=== PATIENT | female | born 1960 | race Caucasian/White ===

== ENCOUNTER 2016-10-14 18:25 | Emergency (ER) | payer OTHER ==
[~2016-10-14] VITALS: Ht 158.1 cm; Wt 93.0 kg
[2016-10-14 18:39] VITALS: BP 109/76
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
[2016-10-14] MEDS ORDERED: BUPROPION XL300 M1 PO (19:38)
[2016-10-14] MEDS ORDERED: ADVAIR 500-501 EACH INH (19:38)
[2016-10-14] MEDS ORDERED: MOBIC15 M1 PO (19:38)
[2016-10-14] MEDS ORDERED: VENTOLIN HFA18 GM INH (19:38)
[2016-10-14] MEDS ORDERED: OXYBUTYNIN CHLOR5 M3 PO (19:38)
[2016-10-14] MEDS ORDERED: METOPROLOL TART75 MG PO (19:38)
[2016-10-14] MEDS ORDERED: TRAZODONE HCL300 M1 PO (19:38)
[2016-10-14] MEDS ORDERED: NORCO 5-325 TA1 EACH PO (19:38)
[2016-10-14] MEDS ORDERED: ABILIFY30 M1 PO (19:38)
[2016-10-14] MEDS ORDERED: SINGULAIR10 M1 PO (19:38)
[2016-10-14] MEDS ORDERED: NEURONTIN300 M1 PO (19:38)
[2016-10-14] MEDS ORDERED: PROZAC20 M2 PO (19:38)
== END 2016-10-14 19:48 ==
LOC: ERH
DX: G89.29 Other chronic pain (principal); Z76.0 Encounter for issue of repeat prescription

== ENCOUNTER 2016-10-18 13:57 | Emergency (ER) | payer OTHER ==
[~2016-10-18] VITALS: Ht 157.5 cm; Wt 93.0 kg
[~2016-10-18 13:57] MED LIST: ABILIFY30 M1 PO; ADVAIR 500-501 EACH INH; BUPROPION XL300 M1 PO; METOPROLOL TART75 MG PO; MOBIC15 M1 PO; NEURONTIN300 M1 PO; NORCO 5-325 TA1 EACH PO; OXYBUTYNIN CHLOR5 M3 PO; PROZAC20 M2 PO; SINGULAIR10 M1 PO; TRAZODONE HCL300 M1 PO; VENTOLIN HFA18 GM INH
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
[2016-10-18 16:26] VITALS: BP 129/80
== END 2016-10-18 16:26 ==
LOC: ERH 13:57
DX: G89.29 Other chronic pain (principal)
CPT/HCPCS: 96372; J1885